=== PATIENT | male | born 2000 | race Caucasian/White ===

== ENCOUNTER 2022-01-05 23:57 | Emergency (ER) | payer SELFPAY ==
[~2022-01-05] VITALS: Ht 188 cm; Wt 84.5 kg
[~2022-01-05 23:57] MED LIST: DICY10CA53 PO; ONDA4TAB7 PO
[2022-01-06] MEDS ORDERED: IV NORMAL SALINE 1000ML BAG 1,000 ML IV ONE (00:15)
--- NOTE | 2022-01-06 00:26 | PHYS DOC ---
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 Patient said he got some medication from someone, not willing to disclose who. He took the medication to get high. Patient became unresponsive, his mom called EMS. He was unresponsive when EMS got to him. He was given 2 mg Narcain and he became responsive. On the way here, he told EMS that he is thinking about his daughter who was from [place], he was thinking about not wanting to be here anymore. His daughter one year ago. Patient denies suicidal ideation at this time. Patient denies any chest pain, no abdominal pain, no nausea or vomiting. Patient denied headache. Patient denied neck pain. (DESI PEREZ DO) HPI: Please see Dr. Perez's HPI (REBEKAH JONES MD) Review of Systems: Review of Systems: Constitutional: Denies fever or chills. [] Eyes: Denies change in visual acuity. [] HENT: Denies nasal congestion or sore throat. [] Respiratory: Denies cough or shortness of breath. [] Cardiovascular: Denies chest pain or edema. [] GI: Denies abdominal pain, nausea, vomiting, bloody stools or diarrhea. [] : Denies dysuria. [] Musculoskeletal: Denies back pain or joint pain. [] Integument: Denies rash. [] Neurologic: Denies headache, focal weakness or sensory changes. [] Endocrine: Denies polyuria or polydipsia. [] Lymphatic: Denies swollen glands. [] Psychiatric: Denies depression or anxiety. [] (DESI PEREZ DO) Heart Score: C/O Chest Pain: N/A Risk Factors: Risk Factors: DM, Current or recent (<one month) smoker, HTN, HLP, family history of CAD, obesity. Risk Scores: Score 0 - 3: 2.5% MACE over next 6 weeks - Discharge Home Score 4 - 6: 20.3% MACE over next 6 weeks - Admit for Clinical Observation Score 7 - 10: 72.7% MACE over next 6 weeks - Early Invasive Strategies (DESI PEREZ DO) C/O Chest Pain: No (REBEKAH JONES MD) Current Medications: Current Medications Medications (Trade) Dose Ordered Sig/Sharifa Start Time Stop Time Status Last Admin Dose Admin Sodium Chloride 1,000 ml @ 1,000 mls/hr 1X ONCE 01/06/22 00:15 01/06/22 01:14 (DESI PEREZ DO) Allergies: Allergies: Allergies Coded Allergies Type Severity Reaction Last Updated Verified No Known Drug Allergies 11/05/16 No (DESI PEREZ DO) Physical Exam: PE: Constitutional: Well developed, well nourished, no acute distress, non-toxic appearance. [] HENT: Normocephalic, atraumatic, bilateral external ears normal, oropharynx moist, no oral exudates, nose normal. [] Eyes: PERRLA, EOMI, conjunctiva normal, no discharge. [] Neck: Normal range of motion, no tenderness, supple, no stridor. [] Cardiovascular:Heart rate regular rhythm, no murmur [] Lungs & Thorax: Bilateral breath sounds clear to auscultation [] Abdomen: Bowel sounds normal, soft, no tenderness, no masses, no pulsatile masses. [] Skin: Warm, dry, no erythema, no rash. [] Back: No tenderness, no CVA tenderness. [] Extremities: No tenderness, no cyanosis, no clubbing, ROM intact, no edema. [] Neurologic: Alert and oriented X 3, normal motor function, normal sensory function, no focal deficits noted. [] Psychologic: Affect normal, judgement normal, mood normal. [] (DESI PEREZ DO) PE: GENERAL: The patient appears well-developed, well-nourished in no apparent distress. The patient is alert and oriented x4. HEAD: Head is normocephalic and atraumatic. EYES: Extraocular muscles are intact. Pupils are equal, round, and reactive to light and accommodation. Sclera non-icteric. Conjunctivae non-injected. EARS/NOSE/MOUTH/THROAT: External inspection of the ears and nose reveals a normal overall appearance without lesions or scars. Nares are patent. Mouth is well hydrated and without lesions. Mucous membranes are moist. Posterior pharynx clear of any exudate or lesions. NECK: Supple. Trachea Midline. No lymphadenopathy or thyromegaly. ABDOMEN: Soft, nontender, and nondistended. Positive bowel sounds. No hepatosplenomegaly, no masses, no hernias noted. EXTREMITIES: Without any cyanosis, clubbing, rash, lesions or edema. NEUROLOGIC: CN II-XII grossly intact PSYCHIATRIC: depressed mood/affect. SKIN: Warm and dry. No ulceration or induration noted. (REBEKAH JONES MD) Current Patient Data: Labs: Laboratory Tests Test 01/06/22 00:14 01/06/22 03:47 White Blood Count 10.5 x10^3/uL Red Blood Count 5.01 x10^6/uL Hemoglobin 15.1 g/dL Hematocrit 43.4 % Mean Corpuscular Volume 87 fL Mean Corpuscular Hemoglobin 30 pg Mean Corpuscular Hemoglobin Concent 35 g/dL Red Cell Distribution Width 13.4 % Platelet Count 184 x10^3/uL Neutrophils (%) (Auto) 67 % Lymphocytes (%) (Auto) 23 % Monocytes (%) (Auto) 9 % Eosinophils (%) (Auto) 2 % Basophils (%) (Auto) 0 % Neutrophils # (Auto) 7.0 x10^3/uL Lymphocytes # (Auto) 2.4 x10^3/uL Monocytes # (Auto) 0.9 x10^3/uL Eosinophils # (Auto) 0.2 x10^3/uL Basophils # (Auto) 0.0 x10^3/uL Sodium Level 141 mmol/L Potassium Level 3.4 mmol/L Chloride Level 105 mmol/L Carbon Dioxide Level 26 mmol/L Anion Gap 10 Blood Urea Nitrogen 12 mg/dL Creatinine 0.9 mg/dL Estimated GFR (Cockcroft-Gault) 105.5 BUN/Creatinine Ratio 13 Glucose Level 84 mg/dL Calcium Level 8.8 mg/dL Magnesium Level 2.0 mg/dL Total Bilirubin 0.4 mg/dL Aspartate Amino Transf (AST/SGOT) 14 U/L Alanine Aminotransferase (ALT/SGPT) 19 U/L Alkaline Phosphatase 38 U/L Total Protein 7.7 g/dL Albumin 3.7 g/dL Albumin/Globulin Ratio 0.9 Salicylates Level 3.7 mg/dL Salicylate Last Dose Date Salicylate Last Dose Time Acetaminophen Level < 2 mcg/ml Acetaminophen Last Dose Date Acetaminophen Last Dose Time Ethyl Alcohol Level < 10 mg/dL SARS-CoV-2 Antigen (Rapid) Negative Current Medications Medications (Trade) Dose Ordered Sig/Sharifa Route PRN Reason Start Time Stop Time Status Last Admin Dose Admin Sodium Chloride 1,000 ml @ 1,000 mls/hr 1X ONCE IV 01/06/22 00:15 01/06/22 01:14 DC 01/06/22 00:45 (DESI PEREZ DO) EKG: EKG: [] (DESI PEREZ DO) Radiology/Procedures: Radiology/Procedures: [] (DESI PEREZ DO) Impression: 21-year-old male with benzodiazepine overdose. Depression and passive suicidal ideation. (REBEKAH JONES MD) Course & Med Decision Making: Course & Med Decision Making Pertinent Labs and Imaging studies reviewed. (See chart for details) Patient is a 21-year-old male who was brought in by EMS from home due to narcotic overdose. Patient was given Narcan to reverse effect of the narcotic that he took at home. Patient has been awake and alert so far. Patient did make some suicidal statement to EMS on the way here therefore patient been evaluated by Roberta from the Pat Team. Patient care was endorsed to the incoming physician at shift change Dr. Rebekah Jones, waiting for mental health evaluation from the [facility]. (DESI PEREZ DO) Course & Med Decision Making Patient was seen and evaluated by PAT team, patient was also seen and evaluated by [facility] psychiatric team. Patient was deemed to not have active suicidal ideation. Patient was deemed by PAT as well as [facility] psych team as able to go home and follow-up outpatient. Patient was agreeable to this plan. Patient stated that he would not harm himself. Patient stated that he would avoid benzodiazepines. Patient was discharged in the custody of his father. Patient was stable at time of discharge. All questions answered. (REBEKAH JONES MD) Dragon Disclaimer: Dragon Disclaimer: This electronic medical record was generated, in whole or in part, using a voice recognition dictation system. (DESI PEREZ DO) Departure Departure Impression: Primary Impression: Narcotic overdose Condition: STABLE Referrals: UNKNOWN PCP NAME (PCP) DESI PEREZ DO Jan 06, 2022 00:26 REBEKAH JONES MD Jan 06, 2022 10:01
[2022-01-06 00:33] LABS: BASO % 0 % (0-3); EOS # 0.2 x10^3/uL (0.0-0.7); EOS % 2 % (0-3); HEMATOCRIT 43.4 % (39.0-53.0); HEMOGLOBIN 15.1 g/dL (13.0-17.5); LYMPH # 2.4 x10^3/uL (1.0-4.8); LYMPH % 23 % (24-48); MEAN CORPUSCULAR HEMOGLOBIN 30 pg (25-35); MEAN CORPUSCULAR HGB CONC 35 g/dL (31-37); MEAN CORPUSCULAR VOLUME 87 fL (79-100); MONO # 0.9 x10^3/uL (0.0-1.1); MONO % 9 % (0-9); NEUT % 67 % (31-73); PLATELET COUNT 184 x10^3/uL (140-400); RED BLOOD COUNT 5.01 x10^6/uL (4.30-5.70); RED CELL DISTRIBUTION WIDTH 13.4 % (11.5-14.5); WHITE BLOOD COUNT 10.5 x10^3/uL (4.0-11.0)
[2022-01-06 00:43] LABS: CALCIUM 8.8 mg/dL (8.5-10.1); CREATININE 0.9 mg/dL (0.7-1.3); GFR 105.5; POTASSIUM 3.4 mmol/L (3.5-5.1)
[2022-01-06 00:47] LABS: ACETAMIN < 2 mcg/ml (10-30); SALIC 3.7 mg/dL (2.8-20.0)
[2022-01-06 00:48] LABS: ALBUMIN 3.7 g/dL (3.4-5.0); ALBUMIN/GLOBULIN RATIO 0.9 (1.0-1.7); ETHANOL < 10 mg/dL (0-10); TOTAL BILIRUBIN 0.4 mg/dL (0.2-1.0); TOTAL PROTEIN 7.7 g/dL (6.4-8.2)
[2022-01-06 05:37] LABS: BARBITURATES NEG (NEG); BENZODIAZEPINES POS (NEG); CANNABINOIDS NEG (NEG); COCAINE NEG (NEG); METHADONE NEG (NEG); OPIATES NEG (NEG); PHENCYCLIDINE NEG (NEG)
[2022-01-06 05:41] LABS: AMPHETAMINE/METHAMPHETAMINE NEG (NEG)
[2022-01-06 06:16] LABS: BACTERIA,URINE 0 /HPF (0-FEW); RBC,URINE 0 /HPF (0-2); WBC,URINE OCC /HPF (0-4)
[2022-01-06 10:12] VITALS: BP 120/59
== END 2022-01-06 10:33 | disposition home or self-care (01) ==
LOC: ER 23:57
DX: T40.601A Poisoning by unspecified narcotics, accidental (unintentional), initial encounter (principal); Z20.822 Contact with and (suspected) exposure to COVID-19; J45.909 Unspecified asthma, uncomplicated; Y92.89 Other specified places as the place of occurrence of the external cause
CPT/HCPCS: 36415; 80053; 80307; 80329; 81001; 83735; 85025; 87426; 96360; 99285; C9803; G0480; J7030; U0003